=== PATIENT | male | born 1965 | race Caucasian/White ===

== ENCOUNTER → 2022-08-21 | Outpatient (REF) | LOC: COL.CARD 11:03 | DX: R07.9 Chest pain, unspecified (principal) ==

== ENCOUNTER 2023-06-28 13:21 | Day surgery (SDC) | payer MEDICARE, BC ==
[~2023-06-28] VITALS: Ht 170.2 cm; Wt 109.0 kg
[~2023-06-28 13:21] MED LIST: LR 1,000 ML IV SCH; Ondansetron 4 MG/2 ML VIAL IV PRN
[2023-06-28] MEDS ORDERED: LOMOTIL 0.025 M1 TAB PO (14:08)
[2023-06-28] MEDS ORDERED: RITALIN 20M20 MG/TAB PO (14:09)
[2023-06-28] MEDS ORDERED: INVEGA9 MG PO (14:19)
[2023-06-28] MEDS ORDERED: DESYREL DIVIDO150 M1 PO (14:20)
[2023-06-28] MEDS ORDERED: ATARAX50 MG (14:24)
[2023-06-28] MEDS ORDERED: MINIPRESS2 MG (14:25)
[2023-06-28] MEDS ORDERED: PRIL40 PO (14:26)
[2023-06-28] MEDS ORDERED: ZYLOPRIM 100MG100 MG PO (14:26)
[2023-06-28] MEDS ORDERED: LIPITOR 80MG80 MG PO (14:26)
[2023-06-28] MEDS ORDERED: KAPSPARGO SPRI100 MG PO (14:27)
[2023-06-28 14:48] VITALS: BP 140/93; PULSE 65; TEMP 97.2
[2023-06-28] MEDS ORDERED: Lidocaine PF 2% (20 MG/ML) 5 ML VIAL ONE (14:56)
[2023-06-28 15:17] VITALS: BP 126/88; PULSE 68; TEMP 96.6
[2023-06-28 15:30] VITALS: BP 144/93; PULSE 67
[2023-06-28 15:45] VITALS: BP 150/98; PULSE 60
--- NOTE | 2023-06-28 15:55 | NUR ---
1517- PATIENT RETURNS TO [facility] VIA CART. PT AWAKE AND ALERT. RESPIRATIONS UNLABORED. AMBULATED TO RECLINER CHAIR WITH 2:1 SBA. PT DENIES NAUSEA OR ABDOMINAL PAIN. HOOKED UP TO MONITOR AND VS OBTAINED. CALL LIGHT AT SIDE AND FAMILY WAITING THE ENDO WAITING ROOM. 1525- DR. PACE IN ROOM SPEAKING WITH PATIENT. 1530- PATIENT TOLERATING DIET PEPSI AND CHEESE WITHOUT NAUSEA OR DIFFICULTY SWALLOWING. 1545- D/C INSTRUCTIONS REVIEWED WITH PATIENT. PT VERBALIZED UNDERSTANDING AND A COPY OF INSTRUCTIONS PROVIDED IN D/C FOLDER. 1550- PATIENT DRESSES SELF. 1555- PATIENT DISCHARGED FROM UNIT VIA W/C TO A PERSONAL VEHICLE. PT LEFT HOSPITAL IN STABLE CONDITION.
== END 2023-06-28 15:55 | disposition home or self-care (01) ==
LOC: SDCO 13:21
DX: K29.30 Chronic superficial gastritis without bleeding (principal); K31.A19 Gastric intestinal metaplasia without dysplasia, unspecified site; K21.00 Gastro-esophageal reflux disease with esophagitis, without bleeding; E11.9 Type 2 diabetes mellitus without complications; H57.10 Ocular pain, unspecified eye; R51.9 Headache, unspecified; Z90.49 Acquired absence of other specified parts of digestive tract; Z87.11 Personal history of peptic ulcer disease; Z79.899 Other long term (current) drug therapy
CPT/HCPCS: J2704; J7120